=== PATIENT | male | born 1975 | race Caucasian/White ===

== ENCOUNTER 2024-03-10 12:15 | Inpatient (IN) | payer OTHER ==
[2024-03-10 12:42] VITALS: BMI 27.7
[2024-03-10] MEDS ORDERED: IBUPROFEN 400 MG TABLET (FP) PO PRN (13:30)
[2024-03-10] MEDS ORDERED: BENZONATATE 200 MG CAPSULE PO PRN (13:30)
[2024-03-10] MEDS ORDERED: ACETAMINOPHEN 325 MG TABLET (FP) PO PRN (13:30)
[2024-03-10] MEDS ORDERED: BENZOCAINE/MENTHOL (CHLORASEPTIC ) LOZENGE MM PRN (13:30)
[2024-03-10] MEDS ORDERED: diazePAM 5 MG TABLET PO PRN (13:30)
[2024-03-10] MEDS ORDERED: BISMUTH SUBSALICYLATE 524 MG/30 ML PO PRN (13:30)
[2024-03-10] MEDS ORDERED: MAG HYDROX/AL HYDROX/SIMETH 30 ML UNIT-DOSE CUP PO PRN (13:30)
[2024-03-10] MEDS ORDERED: NALOXONE (NARCAN) HCL 4 MG/0.1 ML SPRAY NS PRN (13:30)
[2024-03-10] MEDS ORDERED: guaiFENesin 600 MG TABLET.ER (FP) PO PRN (13:30)
[2024-03-10] MEDS ORDERED: POLYETHYLENE GLYCOL (HEALTHYLAX) 3350 17 GM PACKET PO PRN (13:30)
[2024-03-10] MEDS ORDERED: LOPERAMIDE HCL 2 MG CAPSULE PO PRN (13:30)
[2024-03-10] MEDS ORDERED: ONDANSETRON *ODT* 4 MG TABLET SL PRN (13:30)
[2024-03-10] MEDS ORDERED: MAGNESIUM HYDROX 2400MG/30ML ORAL SUSPENSION 30 ML CUP PO PRN (13:30)
[2024-03-10] MEDS ORDERED: DICYCLOMINE HCL 10 MG CAPSULE PO PRN (13:30)
[2024-03-10] MEDS ORDERED: hydrOXYzine PAMOATE 25 MG CAPSULE (FP) PO PRN (13:30)
[2024-03-10] MEDS: PRENATAL VITAMINS W/ FOLIC ACID TABLET (FP) PO SCH (14:13)
[2024-03-10] MEDS ORDERED: IBUPROFEN 600 MG TABLET (FP) PO ONE (14:32)
[2024-03-10] MEDS: IBUPROFEN 600 MG TABLET (FP) PO PRN (14:34)
[2024-03-10] MEDS: LORazepam 1 MG TABLET PO PRN (15:18)
[2024-03-10] MEDS: NICOTINE POLACRILEX 4 MG GUM BUC PRN (15:41)
[2024-03-10] MEDS ORDERED: diazePAM 5 MG TABLET PO SCH (17:00)
[2024-03-10] MEDS: LORazepam 2 MG TABLET PO SCH (17:21)
[2024-03-10] MEDS: MELATONIN 5 MG TABLETS PO SCH (22:43)
[2024-03-10] MEDS: THIAMINE 100 MG TABLET PO SCH (22:43)
[2024-03-10] MEDS: METHOCARBAMOL 500 MG TABLET PO PRN (22:43)
[2024-03-11] MEDS: SELENIUM SULFIDE 2.25% 180 ML SHAMPOO TP SCH (10:06)
[2024-03-11] MEDS: BUPRENORPHINE/NALOXONE 8 MG/2 MG FILM PACKET SL SCH (13:31)
[2024-03-11] MEDS: BUPRENORPHINE/NALOXONE 4 MG/1 MG FILM PACKET SL ONE (14:41)
[2024-03-12] MEDS: LORazepam 1 MG TABLET PO SCH (05:37)
[2024-03-12] MEDS ORDERED: diazePAM 5 MG TABLET PO SCH (06:00)
[2024-03-12] MEDS: BUPRENORPHINE/NALOXONE 12 MG-3 MG SL FILM PACKET SL SCH (09:32)
[2024-03-12] MEDS: GABAPENTIN 300 MG CAPSULE PO SCH (22:29)
[2024-03-13] MEDS ORDERED: LORazepam 0.5 MG TABLET PO PRN
[2024-03-13] MEDS: LORazepam 0.5 MG TABLET PO SCH (05:31)
[2024-03-13] MEDS ORDERED: diazePAM 5 MG TABLET PO SCH (06:00)
[2024-03-13 15:36] LABS: HEMOGLOBIN 12.5 GM/dL (11.7-16.9); MCHC 33.8 g/dl (32.0-35.9); MEAN CELL VOLUME 82.8 fl (80-96); MEAN PLT VOLUME 8.8 fl (7.5-11.1); PLATELET COUNT 245 10^3/uL (134-434); RBC 4.47 M/mm3 (4.00-5.60); RDW 14.9 % (11.9-15.9); WHITE BLOOD COUNT 6.2 K/mm3 (4.0-10.0)
[2024-03-13 15:41] LABS: POTASSIUM 4.2 mmol/L (3.5-5.1)
[2024-03-13 15:46] LABS: ALBUMIN 3.9 g/dl (3.4-5.0); BLOOD UREA NITROGEN 15.9 mg/dL (7-18); CALCIUM 9.3 mg/dL (8.5-10.1)
[2024-03-13 15:49] LABS: CREATININE 0.9 mg/dL (0.55-1.3)
[2024-03-13 15:50] LABS: BILIRUBIN,TOTAL 0.2 mg/dL (0.2-1)
[2024-03-14] MEDS: LORazepam 0.5 MG TABLET PO ONE ×2 (05:22→14:02)
[2024-03-14] MEDS ORDERED: diazePAM 5 MG TABLET PO ONE (06:00)
[2024-03-14] MEDS: NALOXONE (NYS OPIOID OVERDOSE PROGRAM) 4 MG/0.1 ML SPRAY NS SCH (13:44)
[2024-03-15] MEDS: LORazepam 0.5 MG TABLET PO ONE (05:30)
[2024-03-15 09:40] VITALS: BP 117/71; PULSE 70; RESP 18; TEMP 97.5
== END 2024-03-15 10:10 | disposition home or self-care (01) | DRG 773 ==
LOC: YASAS 12:15 → Y6N 14:26
PROVIDERS: ADMIT Allergy & Immunology; ATTEND Surgery
PROC: HZ2ZZZZ Detoxification Services for Substance Abuse Treatment (ICD-10-PCS; principal; 2024-03-10)
DX: F13.230 Sedative, hypnotic or anxiolytic dependence with withdrawal, uncomplicated (principal); F11.20 Opioid dependence, uncomplicated; F17.210 Nicotine dependence, cigarettes, uncomplicated; F41.9 Anxiety disorder, unspecified; F43.10 Post-traumatic stress disorder, unspecified; F19.982 Other psychoactive substance use, unspecified with psychoactive substance-induced sleep disorder; F19.980 Other psychoactive substance use, unspecified with psychoactive substance-induced anxiety disorder; E78.5 Hyperlipidemia, unspecified; R73.03 Prediabetes; Z62.810 Personal history of physical and sexual abuse in childhood; Z56.0 Unemployment, unspecified
CPT/HCPCS: 36415; 80053; 80305; 80307; 82962; 85027; 86780; 93005; 93010